=== PATIENT | male | born 1960 | race Caucasian/White ===

== ENCOUNTER 2020-07-18 08:21 | Observation (INO) | payer OTHER, MEDICARE, SELFPAY ==
[2020-07-18] VITALS (19 sets, daily range): BP systolic 115–176; BP diastolic 70–104; PULSE 69–122; RESP 16–20; TEMP 36.3–37.6; O2SAT 91–99; BMI 26.4
--- NOTE | 2020-07-18 08:27 | ED_ITS ---
HPI - Back Pain/Injury General: Chief Complaint: Back Pain/Injury Stated Complaint: back pain, rib pain Time Seen by Provider: 07/18/20 08:22 History of Present Illness: HPI Narrative: 60-year-old male presents emergency room with complaints of back pain. Pain radiates into the right upper quadrant. He has had this in the past although not nearly as intense it began last night is much more intense and has been in the past he is not had any diarrhea or vom iting with it no fever he has had loss of appetite. Denies hematemesis coffee- ground emesis. MD elicited complaint: back pain Onset (ago): hour(s) Timing: constant Severity: severe Quality: sharp and stabbing Location: right flank and right upper back Radiation: other (Right upper quadrant) Exacerbating factors: eating Relieving factors: none Associated symptoms: Reports abdominal pain, nausea and vomiting; Deny arthralgias, chills, change in bowel habits, difficulty walking, dysuria, fatigue, fecal incontinence, fever(s), hematuria, myalgias, numbness, syncope, tingling/numbness/burning, urinary frequency, urinary urgency or weakness Review of Systems Const: Denies: fever(s), chills or fatigue ENMT: Denies: throat pain, ear or mastoid pain, nasal discharge or nasal congestion Card: Denies: syncope Resp: Denies: dyspnea, productive cough or non-productive cough GI: Reports: abdominal pain, nausea and vomiting; Denies: fecal incontinence or change in bowel habits : Denies: dysuria, urinary urgency or hematuria Skin/Breast: Denies: rash or pruritus Neuro: Denies: difficulty walking [facility] ED PFSH: Social History Smoking and tobacco status: current every day smoker cigarettes Packs smoked per day: 1.5 Alcohol intake: never Substance/Drug Use: never Physical Exam Const: COMMON NORMALS: no acute distress GENERAL APPEARANCE: cooperative and comfortable ORIENTATION/CONSCIOUSNESS: Yes awake, Yes oriented to person, Yes oriented to place and Yes oriented to time HENMT: COMMON NORMALS: normocephalic, atraumatic and hearing grossly normal bilaterally HEAD & SCALP: normocephalic and atraumatic Neck/C-Spine: COMMON NORMALS: no JVD Resp: COMMON NORMALS: normal respiratory effort, No retractions, No use of accessory muscles and clear to auscultation bilaterally AUSCULTATION: clear to auscultation bilaterally Cardio: COMMON NORMALS: no JVD, regular rate, regular rhythm and No murmurs present (Cardio) RATE: regular rate RHYTHM: regular rhythm GI: COMMON NORMALS: No hepatosplenomegaly present AUSCULTATION: Yes normoactive bowel sounds PALPATION: Yes Tenderness to palpation present (GI) Details: RUQ (Positive Trevino sign) and Yes No hepatosplenomegaly present Extremity: COMMON NORMALS: normal to inspection, capillary refill normal, no clubbing, cyanosis or edema, no calf tenderness and no pedal edema Neuro: SENSORIUM/ORIENTATION: Yes oriented to person, Yes oriented to place and Yes oriented to time Skin: COMMON NORMALS: no rashes or lesions noted GENERAL SKIN EXAM: no rashes or lesions noted Course Vital Signs: Vital signs: Vital Signs Temperature 97.3 F L 07/18/20 08:31 Pulse Rate 74 07/18/20 08:34 Respiratory Rate 18 07/18/20 09:02 Blood Pressure 124/84 07/18/20 08:34 Pulse Oximetry 98 07/18/20 08:34 MDM - Back Pain/Injury MDM Narrative: Medical decision making narrative: Elevated white count CT shows thickening of the gallbladder wall with stones no significant dilation of common bile duct normal T bili and liver enzymes and lipase. Was started on Zosyn admit to Dr. Lorenzo. Have discussed with him. Lab Data: Attestation: I reviewed the patient's lab results. Labs: Lab Results 07/18/20 07/18/20 Range/Units 08:55 08:55 WBC 11.6 H (4.0-10.0) 10^3/ uL RBC 4.13 (4.1-5.3) 10^6/u L Hgb 14.0 (11.7-16.6) g/dL Hct 39.7 L (42.0-52.0) % MCV 96.1 H (80-94) fL MCH 33.9 (28.0-34.0) pg MCHC 35.3 (30.0-36.0) g/dL RDW 12.2 (12.1-15.1) % Plt Count 275 (130-400) 10^3/c mm MPV 8.9 (7.4-10.4) fL Neut % (Auto) 89.3 % Lymph % (Auto) 5.4 % [place] % (Auto) 4.2 % Eos % (Auto) 0.3 % Baso % (Auto) 0.5 % Neut # (Auto) 10.35 H (1.8-7.7) 10^3/u L Lymph # (Auto) 0.6 L (0.8-4.8) 10^3/u L [place] # (Auto) 0.5 (0.2-0.9) 10^3/u L Eos # (Auto) 0.0 (0.0-0.8) 10^3/u L Baso # (Auto) 0.1 (0.0-0.1) 10^3/u L Nucleated RBC % (a uto) 0 % Nucleated RBCs # 0.0 /100WBC Sodium 133 L (136-145) mmol/L Potassium 3.9 (3.5-5.1) mmol/L Chloride 99 (98-107) mmol/L Carbon Dioxide 26 (22-29) mmol/L Anion Gap 11.9 (5-19) BUN 13 (8-23) mg/dL Creatinine 0.8 (0.7-1.2) mg/dL GFR Calculation 98.6 (90-130) mL/min Glucose 162 H (65-115) mg/dL Calculated Osmolal ity 280 L (285-295) mOsm/k g Calcium 8.8 (8.5-10.5) mg/dL Total Bilirubin 0.5 (0.15-1.2) mg/dL AST 18 (0-40) U/L ALT 15 (0-41) U/L Alkaline Phosphata se 127 (40-130) IU/L Creatine Kinase 47 (39-308) U/L Total Protein 6.8 (6.6-8.7) g/dL Albumin 3.9 (3.5-5.2) g/dL Globulin 2.9 (1.3-4.6) g/dL Lipase 6 L (13-60) U/L Discharge Plan Discharge Patient Disposition: Placed in Observation Admit Provider: Baltazar Andrews Clinical Impression: Acute cholecystitis Coding Level of Care Code 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
--- NOTE | 2020-07-18 08:40 | ECG_ITS ---
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 Measurements Intervals [place] Rate: 85 P: 78 AR: 156 QRS: 63 QRSD: 109 T: 78 QT: 370 QTc: 440 Interpretive Statements SINUS RHYTHM No previous ECG available for comparison Electronically Signed On 07-19-2020 1:11:55 CDT by Tracie Bansal M.D. [id number]
--- NOTE | 2020-07-18 08:40 | US_ITS ---
WS: [id number] ULTRASOUND ABDOMEN LIMITED CLINICAL INFORMATION: RUQ abd pain COMPARISON: None. FINDINGS: Liver Size: Enlarged Craniocaudal length: 18.3 cm. Echogenicity: Normal. Surface nodularity: None. Mass (size and location): None. Bile ducts Intrahepatic ducts: Normal. Common bile duct diameter: 1.0 cm. Gallbladder Cholelithiasis with wall thickening. Irregular soft tissue thickening. Gallbladder mass not excluded. Gallstones: Present Gallbladder sludge: None. Gallbladder wall thickening: Present measuring 6.7 mm Pericholecystic fluid: None. Sonographic Trevino sign: Present Pancreas Not well seen due to bowel gas Right kidney: Normal. Hydronephrosis: None. Size: 10.7 cm x 4.7 cm x 3.0 cm. Abdominal aorta and IVC Visualized portions are normal. Ascites: None. US/US gall bladder [id number] IMPRESSION: 1. Irregular gallbladder with cholelithiasis and gallbladder wall thickening. Intraluminal polypoid thickening. Intraluminal mass not excluded. This can be f urther evaluated with MRCP. 2. Enlarged common bile duct measuring 10 mm. 3. Hepatomegaly. 4. No hydronephrosis in right kidney.
[2020-07-18 09:01] LABS: Basophils # 0.1 10^3/uL (0.0-0.1); Basophils % 0.5 %; Eosinophils % 0.3 %; Hematocrit 39.7 % (42.0-52.0); Lymphocytes # 0.6 10^3/uL (0.8-4.8); Lymphocytes % 5.4 %; Mean Corpuscular HGB Conc 35.3 g/dL (30.0-36.0); Mean Corpuscular Hemoglobin 33.9 pg (28.0-34.0); Mean Corpuscular Volume 96.1 fL (80-94); Mean Platelet Volume 8.9 fL (7.4-10.4); Monocytes # 0.5 10^3/uL (0.2-0.9); Monocytes % 4.2 %; Neutrophils # 10.35 10^3/uL (1.8-7.7); Neutrophils % 89.3 %; Nucleated Red Blood Cells % 0 %; Platelet Count 275 10^3/cmm (130-400); Red Blood Count 4.13 10^6/uL (4.1-5.3); Red Cell Distribution Width 12.2 % (12.1-15.1); White Blood Count 11.6 10^3/uL (4.0-10.0)
[2020-07-18] MEDS: ondansetron 2 mg/ML SDV 2 mL 4 MG IVP (09:02)
[2020-07-18] MEDS: morphine 4 mg/mL SDV 1 mL 6 MG IVP (09:02)
[2020-07-18 09:21] LABS: Alanine Aminotransferase 15 U/L (0-41); Albumin Level 3.9 g/dL (3.5-5.2); Alkaline Phosphatase 127 IU/L (40-130); Anion Gap 11.9 (5-19); Aspartate Amino Transferase 18 U/L (0-40); Blood Urea Nitrogen 13 mg/dL (8-23); Calcium 8.8 mg/dL (8.5-10.5); Carbon Dioxide 26 mmol/L (22-29); Chloride 99 mmol/L (98-107); Creatine Phosphokinase 47 U/L (39-308); Globulin 2.9 g/dL (1.3-4.6); Glomerular Filtration Rate 98.6 mL/min (90-130); Glucose 162 mg/dL (65-115); Lipase 6 U/L (13-60); Osmolality Calculated 280 mOsm/kg (285-295); Potassium 3.9 mmol/L (3.5-5.1); Sodium 133 mmol/L (136-145); Total Bilirubin 0.5 mg/dL (0.15-1.2); Total Protein 6.8 g/dL (6.6-8.7)
[2020-07-18] MEDS: piperacillin-tazobactam 3.375 GM in sodium chloride 0.9% (plus) 50 ML IV (09:24)
[2020-07-18 11:00] LABS: Bilirubin Urine Neg (Negative); Blood Urine 2+ (Negative); Glucose Urine UA Norm (Normal); Ketones Urine Negative (Negative); Nitrate Urine Negative (Negative); Protein Urine Neg (Negative); Specific Gravity, Urine 1.005 (1.005-1.030); Urine Appearance SL Hazy (CLEAR); Urine Color Yellow (Yellow); Urobilinogen Urine Norm (Negative); pH Urine 7 (5-7)
[2020-07-18 11:01] LABS: Add Urine Microscopic? YES; Leukocyte Esterase Urine Negative (Negative)
[2020-07-18 11:02] LABS: Add Urine Culture? Yes; Amorphous Sediment Urine 1+ /hpf; Bacteria Urine TRACE /hpf; Coarse Granular Casts Urine 0-4 /lpf; Mucus Urine TRACE /hpf; Squamous Epithelial Cell Urine 0-4 /hpf (0-5); WBC Urine 0-4 /hpf (0-5)
--- NOTE | 2020-07-18 11:43 | P.HP_ITS ---
Providers/Chief Complaint Admitting Physician: Baltazar Andrews MD Chief Complaint: SIDE/BACK PAIN History of Present Illness Edson Bridges is a 60 year old male who developed right-sided back pain last evening and this eventually radiated around to the front into the right upper quadrant. He says it even seems to extend up into his chest at times. He has felt nauseated but has not vomited. He feels gassy and bloated. He denies shor tness of breath. He came to the emergency room and an ultrasound revealed evidence of acute calculus cholecystitis. The patient reports that he has had multiple episodes like this over the past year, but it rarely will ever come all the way to the front of his abdomen. He says it usually comes on after he eats greasy or fried foods. It is usually associated with nausea and a bloated and belchy sensation. When it started he says it was usually just in his back and on his side and he thought he had had a rib injury that just had not been identified, even though he has no history of trauma to that area. Review of Systems General: Reports: 10 or more systems reviewed and unremarkable except in HPI and below Const: Denies: fever(s) Card: Reports: chest pain GI: Reports: abdominal pain, nausea, bloating and belching; Denies: vomiting or change in bowel habits Medications/Allergies Home Medications Medication Instructions Recorded Confirmed Last Taken Type albuterol sulfate 2 puff INHALATION Q4H PRN 07/18/20 07/18/20 Unknown History amitriptyline 50 mg PO BEDTIME 07/18/20 07/18/20 07/17/20 History bisacodyl 5 mg PO DAILY PRN 07/18/20 07/18/20 Unknown History cetirizine [Zyrtec] 10 mg PO DAILY 07/18/20 07/18/20 07/18/20 History docusate sodium [Colace] 100 mg PO DAILY 07/18/20 07/18/20 07/17/20 History gabapentin 300 mg PO TID 07/18/20 07/18/20 07/18/20 History methocarbamol 500 mg PO TID PRN 07/18/20 07/18/20 07/18/20 History morphine 30 mg PO Q12H 07/18/20 07/18/20 07/18/20 History multivitamin 1 tab PO DAILY 07/18/20 07/18/20 07/18/20 History naproxen 500 mg PO BID PRN 07/18/20 07/18/20 07/18/20 History valacyclovir 500 mg PO DAILY 07/18/20 07/18/20 07/17/20 History Allergies Allergy/AdvReac Type Severity Reaction Status Date / Time No Known Allergies Allergy Verified 07/18/20 08:35 PFSH Acute PFSH: Medical History (Updated 07/18/20 @ 12:19 by Baltazar Andrews MD) Chronic neck pain COPD (chronic obstructive pulmonary disease) History of skin cancer BCC abdominal wall Surgical History (Updated 07/18/20 @ 12:19 by Baltazar Andrews MD) Skin cancer of trunk BCC excised from right upper quadrant abdominal wall Social History (Updated 07/18/20 @ 12:20 by Baltazar Andrews MD) Smoking and tobacco status: current every day smoker cigarettes Packs smoked per day: 1.5 Years cigarettes smoked: 45 Alcohol intake: never Substance/Drug Use: never Vitals/I&O/Wt Last Vital Signs Temp 98.7 F 07/18/20 10:42 Pulse 71 07/18/20 10:42 Resp 18 07/18/20 10:42 BP 115/82 07/18/20 10:42 Pulse Ox 95 07/18/20 10:42 07/17/20 07/18/20 07/18/20 22:59 06:59 14:59 Intake Total 50 / 50 Balance 50 / 50 Weight last 48 hrs Weight 195 lb Physical Exam Narrative: EXAM NARRATIVE: The patient was examined in his hospital room. He does not appear to be in any acute distress. The pupils are equal. No carotid bruits are heard. The lungs are clear. The heart seems regular. The abdomen reveals bowel sounds it may be a little hypoactive. He has a well-healed scar in the right upper quadrant close to the umbilicus from where he reports he had a skin cancer excised. He has mild epigastric tenderness and perhaps moderate right upper quadrant tenderness but Trevino's sign is equivocal. No obvious masses are palpated. The extremities reveal no obvious edema. Neurologically the patient appears to be grossly intact. Data : 07/18/20 08:55 07/18/20 08:55 Other Labs: Laboratory Tests 07/18/20 08:55 Total Bilirubin 0.5 AST 18 ALT 15 Alkaline Phosphatase 127 Lipase 6 L US: Radiologist's impression: Gallbladder ultrasound 07/18/2020 impression: 1. Irregular gallbladder with cholelithiasis and gallbladder wall thickening. Intraluminal polypoid thickening. Intraluminal mass not excluded. This can be further evaluated with MRCP. 2. Enlarged common bile duct measuring 10 mm. 3. Hepatomegaly. 4. No hydronephrosis in right kidney. A&P Assessment and plan (1) Acute cholecystitis due to biliary calculus: The patient's ultrasound shows evidence of acute calculus cholecystitis. His bile duct appeared a little generous in size, but his LFTs are all within normal limits. The patient has been having pain intermittently for about a year but thought it was more of a musculoskeletal issue even though he says it would clearly come on after he would eat. His symptoms certainly otherwise seem consistent with biliary colic. We discussed biliary colic, cholelithiasis, etc. in detail. I discussed cholecystectomies including the associated surgical risks of bleeding (the patient does take naproxen twice daily -- we did discuss the other risks of NSAIDs including PUD), infection, internal organ injury, chances of an open procedure, etc. He is anxious to proceed with a cholecystectomy. He says if there is any chance he could even be home by the end of the day he would appreciate that. I am going to make arrangements for a laparoscopic or possibly open cholecystectomy today. The operating rooms report that they are extremely busy today and it may not be until later today when we can get down there for his p rocedure. His disposition will be based on what time the surgery gets completed today. Status: Acute Attestations Medical Necessity Statement*: Based on my medical assessment, presenting symptoms and consideration of the scope of surgical therapy, I expect this p atient will require treatment in the hospital for a period of time spanning less than 2 midnights, and is therefore being placed in observation status. Coding Level of Care Code Acute First Aid Attendant for [facility] Diagnoses Acute cholecystitis due to biliary calculus K80.00
[2020-07-18] MEDS: morphine 4 mg/mL SDV 1 mL IVP ×3 (14:04→20:09)
[2020-07-18] MEDS: D5-NS 0.45% + KCL 20 mEq 20 MEQ/1,000 ML BAG 125 MEQ IV ×2 (14:04→23:38)
--- NOTE | 2020-07-18 16:42 | PC.RESP ---
Smoking Cessation and Pulmonary Rehab information sent to patient.
--- NOTE | 2020-07-18 19:15 | ANES.PREANE2 ---
Pre-Anesthetic Assessment Pre-Anesthetic Assessment: Height/Weight: Height 1.83 m Weight 88.451 kg Temp Pulse Resp BP Pulse Ox 97.8 F 69 17 136/84 95 07/18/20 14:50 07/18/20 14:50 07/18/20 18:25 07/18/20 14:50 07/18/20 14:50 Preop Diagnosis: cholecytisis Proposed Procedure: Operation Date: 07/18/20 12:40 Proposed Procedures p Trochanteric Femoral Nail(Right) - Zaki Wheat MD Operation Date: 07/18/20 15:55 Proposed Procedures p Laparoscopic Cholecystectomy(Not Applicable) - Baltazar Andrews MD Familial anesthetic complications: None Was Beta [place] taken within 24 hours: N/A Was Clonidine taken within 24 hours: N/A Last intake: NPO > 8 hrs Social: Social History: Tobacco and No alcohol Exam: Pre-Anes Outpt Exam: alert, oriented x 3, clear to auscultation bilaterally and regular rate & rhythm Airway: Cervical ROM: WNL MP: 3 Dentition: False Pulmonary: Pulmonary: COPD Anesthetic Plan: ASA status: 3 Anesthesia: General Risk of > 500 ml blood loss (7ml/kg in children): No Meds/Allergies Current Medications: Current Medications Generic Name Dose Route Start Last Admin Trade Name Freq PRN Reason Stop Dose Admin Potassium Chloride /Dextrose/Sod Cl 20 meq in 1,000 m ls @ 125 mls/hr 07/18/20 11:05 07/18/20 14:04 D5-Ns 0.45% + Andrés l 20 Meq IV 125 mls/hr .Q8H SRINIVAS Administration Morphine Sulfate 4 mg 07/18/20 17:52 07/18/20 18:25 Morphine 4 Mg/Ml Sdv 1 Ml IVP 4 mg Q2H PRN Administration SEVERE PAIN PFSH Anesthesia PFSH: Medical History (Updated 07/18/20 @ 12:19 by Baltazar Andrews MD) Chronic neck pain COPD (chronic obstructive pulmonary disease) History of skin cancer BCC abdominal wall Surgical History (Updated 07/18/20 @ 12:19 by Baltazar Andrews MD) Skin cancer of trunk BCC excised from right upper quadrant abdominal wall Social History (Updated 07/18/20 @ 12:20 by Baltazar Andrews MD) Smoking and tobacco status: current every day smoker cigarettes Packs smoked per day: 1.5 Years cigarettes smoked: 45 Alcohol intake: never Substance/Drug Use: never Data Anesthesia CBC & Chem 7: 07/18/20 08:55 07/18/20 08:55 Other Labs: Laboratory Results - last 48 hr 07/18/20 07/18/20 07/18/20 08:55 08:55 09:57 WBC 11.6 H RBC 4.13 Hgb 14.0 Hct 39.7 L MCV 96.1 H MCH 33.9 MCHC 35.3 RDW 12.2 Plt Count 275 MPV 8.9 Neut % (Auto) 89.3 Lymph % (Auto) 5.4 [place] % (Auto) 4.2 Eos % (Auto) 0.3 Baso % (Auto) 0.5 Neut # (Auto) 10.35 H Lymph # (Auto) 0.6 L [place] # (Auto) 0.5 Eos # (Auto) 0.0 Baso # (Auto) 0.1 Nucleated RBC % (auto) 0 Nucleated RBCs # 0.0 Sodium 133 L Potassium 3.9 Chloride 99 Carbon Dioxide 26 Anion Gap 11.9 BUN 13 Creatinine 0.8 GFR Calculation 98.6 Glucose 162 H Calculated Osmolality 280 L Calcium 8.8 Total Bilirubin 0.5 AST 18 ALT 15 Alkaline Phosphatase 127 Creatine Kinase 47 Total Protein 6.8 Albumin 3.9 Globulin 2.9 Lipase 6 L Urine Color Yellow Urine Appearance Sl hazy Urine pH 7 Ur Specific [place] 1.005 Urine Protein Neg Urine Glucose (UA) Norm Urine Ketones Negative Urine Blood 2+ H Urine Nitrate Negative Urine Bilirubin Neg Urine Urobilinogen Norm Ur Leukocyte Esterase Negative Urine RBC 10-15 H Urine WBC 0-4 H Ur Squamous Epith Cells 0-4 H Amorphous Sediment 1+ Urine Bacteria Trace Coarse Granular Casts 0-4 H Urine Mucus Trace Cardiac Studies: No Data to Display
[2020-07-18] MEDS: sodium chloride 0.9% 1,000 ML 30 ML IV (20:05)
--- NOTE | 2020-07-18 21:54 | P.OP_ITS ---
Operative Report Date of procedure: July 18, 2020 Pre-op Diagnosis: Acute calculus cholecystitis. Post-op diagnosis: same Procedure Done: Laparoscopic cholecystectomy. Specimens removed/disposition: Gallbladder. Surgeon: Baltazar Andrews Anesthesia: General Estimated blood loss (mL): 25 Complications: None. Condition: stable Disposition: PACU Procedure: The patient was brought to the Operating Room and was placed in a supine position on the Operating Room table. General endotracheal anesthesia was induced. The abdomen was prepped and draped in a sterile fashion. A small vertical incision was carried out in the inferior aspect of the umbilicus. Blunt dissection was carried out down to the fascia, where a small umbilical hernia was found. The hernia defect was simply elongated slightly inferiorly. A stay suture of 0 Vicryl was placed on either side of the midline. The underlying peritoneum was opened bluntly and the Je port was placed directly into the peritoneal cavity through the enlarged hernia defect and was held in place with the inflatable balloon. The peritoneal cavity was insufflated with carbon dioxide. The laparoscope was used to inspect the abdominal cavity. No gross abnormalities were initially noted. A 5 millimeter port was placed in the epigastrium under direct vision. Two 5-millimeter ports were placed on the right side of the abdomen under direct vision. The gallbladder was grasped and was elevated. It was then obvious that the gallbladder was thickened and had an edematous wall. Blunt dissection and hydrodissection were carried out in the infundibular region of the gallbladder and the cystic duct and cystic artery were identified. The gallbladder was partially removed from the liver bed using cautery and the spatula to confirm the anatomy before the structures were clipped and divided. The gallbladder was then removed from the liver bed using cautery and the spatula. A half small hole was inadvertently made in the gall bladder during the dissection and a 1 cm stone eventually fell from the hole that was retrieved with the specimen. After the gallbladder had been removed from the liver bed, the laparoscope was moved to the epigastric port and the gallbladder was removed from the peritoneal cavity through the umbilical port site after being placed in a laparoscopic bag. The stay sutures of Vicryl were tied to each other at the umbilicus, closing the defect so that it was airtight. The perihepatic spaces were irrigated with saline and the liver bed was reinspected. No ongoing problems were seen. The remaining ports were removed from the abdominal wall and the pneumoperitoneum was evacuated. All skin incisions were closed using inverted interrupted sutures of 4-0 Vicryl. Benzoin and Steri-Strips were placed over the incisions and Band-Aids followed. The patient was taken to the Recovery Area in stable condition postoperatively.
[2020-07-18] MEDS: fentaNYL 50 mcg/mL INJ 2mL IVP ×2 (22:17→22:22)
--- NOTE | 2020-07-18 22:17 | PM.PACU ---
PACU note PACU note: Pt good rep effort Post-Anesthesia Exam: awake and vital signs stable Disposition: back to floor
--- NOTE | 2020-07-18 22:40 | ANE.PACU2 ---
Inpatient post-anesthesia follow up: Airway intact: Yes Vital signs: Temperature 99.1 F Pulse Rate [Right Radial] 93 Pulse Rate 90 Respiratory Rate 18 Blood Pressure [Ri ght Arm] 124/84 Blood Pressure 104/69 Pulse Oximetry 92 Oxygen Delivery Me thod Room Air Oxygen Flow Rate 8 Fraction of Inspir ed Oxygen Hydration adequate: Yes Nausea and vomiting: No Pain level: 3 Mental status: Baseline
[2020-07-18] MEDS: heparin 5,000 unit/mL INJ 1 mL 5000 UNIT SUBCUT (23:38)
[2020-07-18] MEDS: morphine ER (12 HR) 30 mg tablet PO (23:39)
[2020-07-19] VITALS (7 sets, daily range): BP systolic 97–104; BP diastolic 56–69; PULSE 90–96; RESP 16–18; TEMP 36.7–37.3; O2SAT 90–93
[2020-07-19 03:39] LABS: Basophils % 0.4 %; Eosinophils % 0.1 %; Hematocrit 36.9 % (42.0-52.0); Hemoglobin 12.6 g/dL (11.7-16.6); Lymphocytes # 0.7 10^3/uL (0.8-4.8); Lymphocytes % 7.2 %; Mean Corpuscular HGB Conc 34.1 g/dL (30.0-36.0); Mean Corpuscular Hemoglobin 33.3 pg (28.0-34.0); Mean Corpuscular Volume 97.6 fL (80-94); Mean Platelet Volume 9.7 fL (7.4-10.4); Monocytes # 0.8 10^3/uL (0.2-0.9); Monocytes % 7.8 %; Neutrophils # 8.66 10^3/uL (1.8-7.7); Neutrophils % 84.2 %; Nucleated Red Blood Cells % 0 %; Platelet Count 255 10^3/cmm (130-400); Red Blood Count 3.78 10^6/uL (4.1-5.3); Red Cell Distribution Width 12.3 % (12.1-15.1); White Blood Count 10.3 10^3/uL (4.0-10.0)
[2020-07-19 04:41] LABS: Alanine Aminotransferase 31 U/L (0-41); Albumin Level 3.5 g/dL (3.5-5.2); Alkaline Phosphatase 136 IU/L (40-130); Anion Gap 11.6 (5-19); Aspartate Amino Transferase 43 U/L (0-40); Blood Urea Nitrogen 11 mg/dL (8-23); Calcium 7.8 mg/dL (8.5-10.5); Carbon Dioxide 25 mmol/L (22-29); Chloride 105 mmol/L (98-107); Globulin 2.4 g/dL (1.3-4.6); Glomerular Filtration Rate 98.6 mL/min (90-130); Glucose 123 mg/dL (65-115); Osmolality Calculated 287 mOsm/kg (285-295); Potassium 3.6 mmol/L (3.5-5.1); Sodium 138 mmol/L (136-145); Total Bilirubin 0.7 mg/dL (0.15-1.2); Total Protein 5.9 g/dL (6.6-8.7)
--- NOTE | 2020-07-19 05:31 | PC.NURSE ---
Time temp HR RR 02 BP 2243 97.9 99 18 91 137/70 2330 97.9 97 18 92 135/70 0050 98.9 94 18 90 97/65 0130 98.7 98 18 92 100/67 0200 97.9 97 18 90 104/70 0400 99.1 90 18 92 104/69
[2020-07-19] MEDS: D5-NS 0.45% + KCL 20 mEq 20 MEQ/1,000 ML BAG 125 MEQ IV (07:28)
--- NOTE | 2020-07-19 07:32 | PM.DCS ---
Discharge Providers Date of Admission: 07/18/20 09:31 Date of Discharge: July 19, 2020 Attending Provider at Admission: Baltazar Andrews MD Attending Provider at Discharge: Baltazar Andrews MD Diagnoses at Discharge Discharge Diagnosis (1) Acute cholecystitis due to biliary calculus: Status: Acute Reason for Visit Reason for Visit: SIDE/BACK PAIN Hospital Course Hospital Course This is a 60-year-old white male who had been having symptoms of what I believe to be biliary colic for approximately a year prior to presentation. They had been worsening. The night before presentation he got such severe right upper quadrant pain that he came into the hospital. An ultrasound and laboratory studies revealed changes consistent with acute calculus cholecystitis. The patient was taken to the operating room later that day after being counseled regarding cholecystectomy's. He underwent a laparoscopic cholecystectomy which was without immediate complication. By the following morning he says he was not passing flatus but he already felt much better. He was very anxious to go home. Arrangements were made for him to follow-up in my office as an outpatient. He was instructed with respect to wound care, activity limitations, diet, etc. in the interim. Physical Exam Narrative: EXAM NARRATIVE: On physical exam, the patient's abdomen is soft. Bowel sounds are present but are somewhat hypoactive. All of the laparoscopic incisions look good. Discharge Data Data Completed and Pending: Completed Studies During Hospitalization Category Date Time Status US gall bladder 7 6705 Stat Ultrasound 07/18/20 08:40 Completed Pending at discharge Category Date Time Status Urine Culture Sta t Lab 07/18/20 09:57 Received Pathology: Surgic al [PTH] Routine Pth 07/18/20 21:49 Ordered Labs from last 24 hours 07/19/20 07/19/20 07/18/20 02:23 02:23 09:57 WBC 10.3 H RBC 3.78 L Hgb 12.6 Hct 36.9 L MCV 97.6 H MCH 33.3 MCHC 34.1 RDW 12.3 Plt Count 255 MPV 9.7 Neut % (Auto) 84.2 Lymph % (Auto) 7.2 [place] % (Auto) 7.8 Eos % (Auto) 0.1 Baso % (Auto) 0.4 Neut # (Auto) 8.66 H Lymph # (Auto) 0.7 L [place] # (Auto) 0.8 Eos # (Auto) 0.0 Baso # (Auto) 0.0 Nucleated RBC % (a uto) 0 Nucleated RBCs # 0.0 Sodium 138 Potassium 3.6 Chloride 105 Carbon Dioxide 25 Anion Gap 11.6 BUN 11 Creatinine 0.8 GFR Calculation 98.6 Glucose 123 H Calculated Osmolal ity 287 Calcium 7.8 L Total Bilirubin 0.7 AST 43 H ALT 31 Alkaline Phosphata se 136 H Creatine Kinase Total Protein 5.9 L Albumin 3.5 Globulin 2.4 Lipase Urine Color Yellow Urine Appearance Sl hazy Urine pH 7 Ur Specific Gravit y 1.005 Urine Protein Neg Urine Glucose (UA) Norm Urine Ketones Negative Urine Blood 2+ H Urine Nitrate Negative Urine Bilirubin Neg Urine Urobilinogen Norm Ur Leukocyte Gwendolyn ase Negative Urine RBC 10-15 H Urine WBC 0-4 H Ur Squamous Epith Cells 0-4 H Amorphous Sediment 1+ Urine Bacteria Trace Coarse Granular Ca sts 0-4 H Urine Mucus Trace 07/18/20 07/18/20 08:55 08:55 WBC 11.6 H RBC 4.13 Hgb 14.0 Hct 39.7 L MCV 96.1 H MCH 33.9 MCHC 35.3 RDW 12.2 Plt Count 275 MPV 8.9 Neut % (Auto) 89.3 Lymph % (Auto) 5.4 [place] % (Auto) 4.2 Eos % (Auto) 0.3 Baso % (Auto) 0.5 Neut # (Auto) 10.35 H Lymph # (Auto) 0.6 L [place] # (Auto) 0.5 Eos # (Auto) 0.0 Baso # (Auto) 0.1 Nucleated RBC % (a uto) 0 Nucleated RBCs # 0.0 Sodium 133 L Potassium 3.9 Chloride 99 Carbon Dioxide 26 Anion Gap 11.9 BUN 13 Creatinine 0.8 GFR Calculation 98.6 Glucose 162 H Calculated Osmolal ity 280 L Calcium 8.8 Total Bilirubin 0.5 AST 18 ALT 15 Alkaline Phosphata se 127 Creatine Kinase 47 Total Protein 6.8 Albumin 3.9 Globulin 2.9 Lipase 6 L Urine Color Urine Appearance Urine pH Ur Specific Gravit y Urine Protein Urine Glucose (UA) Urine Ketones Urine Blood Urine Nitrate Urine Bilirubin Urine Urobilinogen Ur Leukocyte Gwendolyn ase Urine RBC Urine WBC Ur Squamous Epith Cells Amorphous Sediment Urine Bacteria Coarse Granular Ca sts Urine Mucus Vitals: Last Vital Signs Temp 99.1 F 07/19/20 04:00 Pulse 90 07/19/20 04:00 Resp 18 07/19/20 04:00 BP 104/69 07/19/20 04:00 Pulse Ox 92 07/19/20 04:00 Discharge Plan Discharge Patient Disposition: Home Condition: Stable Prescriptions: Continued multivitamin Tablet 1 tab PO DAILY RF: 0 methocarbamol 500 mg Tablet 500 mg PO TID PRN (Reason: Pain) RF: 0 Zyrtec 10 mg Tablet 10 mg PO DAILY RF: 0 valacyclovir 500 mg Tablet 500 mg PO DAILY RF: 0 morphine 30 mg Tablet Extended Release 30 mg PO Q12H RF: 0 amitriptyline 50 mg Tablet 50 mg PO BEDTIME RF: 0 Colace 100 mg Capsule 100 mg PO DAILY RF: 0 gabapentin 300 mg Capsule 300 mg PO TID RF: 0 albuterol sulfate 90 mcg/actuation Hfa Aerosol Inhaler 2 puff INHALATION Q4H PRN (Reason: Shortness Of Breath) RF: 0 naproxen 500 mg Tablet 500 mg PO BID PRN (Reason: Pain) RF: 0 bisacodyl 5 mg Tablet 5 mg PO DAILY PRN (Reason: Constipation) RF: 0 Discharge Orders: Discharge Order (Routine); Ordered 07/19/20 Ordered By: Baltazar Andrews Referrals: Baltazar Andrews MD [Physician] - 2 weeks (Nursing: Please call Dr. Andrews's office ([phone]) and make an appointment for the patient to be seen in 10-14 days.) Discharge Diet: Advance as tolerated Discharge Activity: Limit activity as instructed Activity Restrictions/Additional Instructions: 1. Discharge to home today. 2. Appointment to see Dr. Andrews in 10-14 days. 3. Bandages / bandaids off tomorrow, leave Steri-Strip(s) on, may shower. No lifting over 20 pounds, no repetitive bending or twisting, no strenuous pushing / pulling or other heavy activity. Ambulate regularly. May go up and down steps if needed. Discharge Attestations Time Spent in Discharge Care*: less than 30 min Quality Metrics Clinical Quality Measures During this hospital stay, did patient experience: None Coding Level of Care Code Acute Chg FW DC note Diagnoses Acute cholecystitis due to biliary calculus K80.00
[2020-07-19] MEDS: gabapentin 300 mg Capsule PO (08:25)
[2020-07-19] MEDS: cetirizine 10 mg Tablet PO (08:26)
[2020-07-19] MEDS: valACYclovir 1,000 mg Tablet 500 MG PO (08:26)
[2020-07-19] MEDS: multivitamin therapeutic Tablet 1 TAB PO (08:26)
[2020-07-19] MEDS: docusate sodium 100 mg Capsule PO (08:26)
[2020-07-19] MEDS: heparin 5,000 unit/mL INJ 1 mL 5000 UNIT SUBCUT (10:01)
[2020-07-19] MEDS: morphine ER (12 HR) 30 mg tablet PO (10:01)
--- NOTE | 2020-07-19 10:35 | PC.NURSE ---
Discharge summary Patient and educated on discharge instructions of not lifting over 20 pounds and no excessive bending or twisting. Continue all medications and take tylenol for pain. Educated patient on following up with Surgeon and primary care physician and to not take naproxen or NSAIDs until his follow up then not excessively after that to avoid developing gastric ulcers. Patient stated understanding and discharged with via private vehicle.
== END 2020-07-19 10:40 | disposition home or self-care (01) ==
LOC: ER 09:19 → MEDSURG 10:16
PROVIDERS: Admitting Provider Surgery; Emergency Provider Family Medicine; Visit Provider Surgery
PROC: 0FT44ZZ Resection of Gallbladder, Percutaneous Endoscopic Approach (ICD-10-PCS; CPT 47562; principal; 2020-07-18 15:55)
DX: K80.10 Calculus of gallbladder with chronic cholecystitis without obstruction (principal); J44.9 Chronic obstructive pulmonary disease, unspecified; F17.210 Nicotine dependence, cigarettes, uncomplicated
CPT/HCPCS: 47562; 12345; 36415; 76705; 80053; 81001; 82550; 83690; 85025; 87086; 88304; 93005; 96365; 96366; 96367; 96372; 96375; 99285; G0378; J0690; J1644; J2270; J2405; J2543; J2704; J2710; J3010; J3490; J7030

== ENCOUNTER 2024-11-08 21:06 | Emergency (ER) | payer OTHER, SELFPAY ==
--- OUTSIDE RECORDS SUMMARY | 2024-11-08 21:14 | XMS_ITS | Clinical Summary ---
Author Organization [facility] Address [address] [place] [address] Phone Care Team Providers Care Perfect Binder Feeder Offbearer Name Role Phone Patel Starr DO Primary Care Provider + Allergies No known active allergies Medications amitriptyline (ELAVIL) 50 mg tablet Take 50 mg by mouth daily at bedtime. Active gabapentin (NEURONTIN) 800 mg tablet Take 3,300 mg by mouth 2 times daily. Active fluticasone (FLONASE) 50 mcg/spray [place], Suspension Administer 2 Sprays in each nostril daily. Active valACYclovir (VALTREX) 500 mg tablet Take 500 mg by mouth 3 times daily. Active naproxen (NAPROSYN) 500 mg tablet Take 500 mg by mouth 2 times daily with meals. Active morphine (MS IR) 30 mg tablet Take 30 mg by mouth every 12 hours. Active methocarbamol (ROBAXIN) 500 mg tablet Take 500 mg by mouth 3 times daily. Active multivitamin (DAILY-CONNIE) tablet Take 1 Tab by mouth daily. Active acetaminophen (TYLENOL) 325 mg tablet Take 650 mg by mouth every 6 hours as needed. Active bisacodyl delayed release (DULCOLAX) 5 mg Tablet, Delayed Release (E.C.) Take 15 mg by mouth 1 time daily as needed for Constipation. Active docusate sodium (COLACE) 50 mg capsule Take 100 mg by mouth daily at bedtime. Active Family History Medical History Relation Name Comments Colon Cancer Neg Hx Social History Tobacco Use Types Packs/Day Years Used Date Smoking Tobacco: Every Day Cigarettes 2 40 Alcohol Use Standard Drinks/Week Comments No 0 (1 standard drink = 0.6 oz pur e alcohol) Sex and Gender Information Value Date Recorded Sex Assigned at Not on file Legal Sex Male 7:00 AM CDT Gender Identity Not on file Sexual Orientation Not on file Occupation Industry Job Start Date Job End Date Not on file Not on file Not on file Not on file Last Filed Vital Signs Vital Sign Reading Time Taken Comments Blood Pressure 105/72 01/18/2014 4:42 PM CDT Pulse 87 01/18/2014 4:42 PM CDT Temperature 36.7 C (98.1 F) 01/18/2014 3:28 PM CDT Respiratory Rate 20 01/18/2014 4:42 PM CDT Oxygen Saturation 98% 01/18/2014 4:42 PM CDT Inhaled Oxygen Concentration - - Weight 86.2 kg (190 lb) 01/07/2014 12:37 PM CDT Height 185.4 cm (6' 1 ) 01/07/2014 12:37 PM CDT Body Mass Index 25.07 01/07/2014 12:37 PM CDT Plan of Treatment Health Maintenance Due Date Last Done Comments DTAP/TDAP/TD VACCINES (1 - Tdap) 1979 FIT-DNA Q 3 years 2005 FIT/FOBT Q 1 year 2005 Flex Sig/CT Colonography Q 5 years 2005 ZOSTER VACCINE (1 of 2) 2010 COLORECTAL SCREENING 01/19/2024 01/18/2014, 01/19/20 14 Colorectal Cancer Screening 01/19/2024 INFLUENZA VACCINE (#1) 2024 RSV VACCINE (60+ or ) (1 - 1-dose 75+ series) 2035 Procedures Procedure Name Priority Date/Time Associated Diagnosis Comments ENDOSCOPY, COLON, SCREENING Routine 01/18/2014 3:13 PM CDT Special screening for malignant neoplasms, colon from Last 3 Months or Most Recently Relevant to Health Maintenance Insurance [employer] [place] [place] [id number] Advance Directives For more information, please contact: [phone] * Full Code (Latest Code Status on File) Date Activated Date Inactivated Comments 01/18/2014 3:12 PM 01/18/2014 7:02 PM Care Teams Perfect Binder Feeder Offbearer Relationship Specialty Start Date End Date Patel Starr DO [address] [place] [address] PCP - General Family Practice 12/17/13
--- OUTSIDE RECORDS SUMMARY | 2024-11-08 21:14 | XMS_ITS | Clinical Summary ---
Author Organization [employer] [facility] Address [address] Attn: [place] [address] Care Team Providers Care Batch Mixing Truck Driver Name Role Phone Patel Starr Primary Care Provider + Allergies No known active allergies Family History Medical History Relation Name Comments Colon Cancer Neg Hx Social History Tobacco Use Types Packs/Day Years Used Date Smoking Tobacco: Every Day Cigarettes Alcohol Use Standard Drinks/Week Comments No 0 (1 standard drink = 0.6 oz pur e alcohol) Sex and Gender Information Value Date Recorded Sex Assigned at Not on file Legal Sex Male 7:29 AM PLATE EMBOSSER Gender Identity Not on file Sexual Orientation Not on file Plan of Treatment Health Maintenance Due Date [...] ) (1 - 1-dose 75+ series) 2035 Insurance MEDICARE PART A AND B Care Teams Batch Mixing Truck Driver Relationship Specialty Start Date End Date Patel Starr DO [address] [place] [id number] PCP - General Family Practice 12/17/13
[2024-11-08 21:17] VITALS: BP 169/82; PULSE 57; RESP 18; TEMP 36.8; O2SAT 99; BMI 26.4
[2024-11-08 21:57] VITALS: BP 166/94; PULSE 57; RESP 19; O2SAT 99
--- NOTE | 2024-11-08 22:01 | PC.NURSE ---
pt given urine specimen cup and asked for urine sample. Pt voiced understanding and states he will try in a little bit. IVF running.
--- NOTE | 2024-11-08 22:01 | W.ED.ABDPA2 ---
HPI - Abdominal Pain General: Chief Complaint: Abdominal Pain Stated Complaint: ABD Pain Time Seen by Provider: 11/08/24 21:42 History of Present Illness: 64-year-old male patient with a history of cervical spondylosis, cholecystectomy. He presents with generalized belly pain and cramping, vomiting, muscle aches for the past couple of days. He states that he worked outside on 4 days ago, and may have gotten too hot. He has been drinking water and Gatorade. He felt improved to some degree on Saturday, but stomach cramping started last night, and have continued through the day. He denies diarrhea. Related Data Home Medications ?Medication ?Instructions ?Recorded ?Confirmed albuterol sulfate 90 mcg/actuation 2 puff inhalation Q4H PRN 07/18/20 07/18/20 aerosol inhaler Shortness Of Breath amitriptyline 50 mg tablet 50 mg PO BEDTIME 07/18/20 07/18/20 bisacodyl 5 mg tablet 5 mg PO DAILY PRN Constipation 07/18/20 07/18/20 cetirizine 10 mg tablet (Zyrtec) 10 mg PO DAILY 07/18/20 07/18/20 docusate sodium 100 mg capsule 100 mg PO DAILY 07/18/20 07/18/20 (Colace) gabapentin 300 mg capsule 300 mg PO TID 07/18/20 07/18/20 methocarbamol 500 mg tablet 500 mg PO TID PRN Pain 07/18/20 07/18/20 morphine 30 mg tablet,extended 30 mg PO Q12H 07/18/20 07/18/20 release multivitamin 1 tab PO DAILY 07/18/20 07/18/20 naproxen 500 mg tablet 500 mg PO BID PRN Pain 07/18/20 07/18/20 valacyclovir 500 mg tablet 500 mg PO DAILY 07/18/20 07/18/20 Previous Rx's ?Medication ?Instructions ?Recorded magnesium citrate (Citrate of 296 ml PO DAILY #296 mL 11/09/24 Magnesia oral) ondansetron 4 mg disintegrating 4 mg PO Q6H PRN nausea and 11/09/24 tablet vomiting #14 tabs Allergies Allergy/AdvReac Type Severity Reaction Status Date / Time No Known Allergies Allergy Verified 07/18/20 08:35 [facility] ED [facility]: Medical History History of skin cancer BCC abdominal wall Chronic neck pain COPD (chronic obstructive pulmonary disease) Surgical History Skin cancer of trunk BCC excised from right upper quadrant abdominal wall Social History Smoking and tobacco/nicotine status: current every day tobacco/nicotine user cigarettes Packs smoked per day: 1.5 Years cigarettes smoked: 45 Alcohol intake: never Substance/Drug Use: never Physical Exam Const: COMMON NORMALS: no acute distress GENERAL APPEARANCE: cooperative; not ill appearing and not frail appearing HENMT: COMMON NORMALS: normocephalic, atraumatic and Normal external nose present HEAD & SCALP: normocephalic and atraumatic FACE & SINUS: normal facial exam and face symmetric NOSE: Normal external nose present Eye: COMMON NORMALS: Equal, round and reactive pupils present and EOMs intact bilaterally PUPIL: Yes Equal, round and reactive pupils present Neck/C-Spine: GENERAL: Yes trachea midline Chest: CHEST: Yes Symmetrical chest wall rise Resp: COMMON NORMALS: normal respiratory effort, No retractions, No use of accessory muscles and clear to auscultation bilaterally AUSCULTATION: clear to auscultation bilaterally Cardio: COMMON NORMALS: regular rate and regular rhythm RATE: regular rate RHYTHM: regular rhythm GI: COMMON NORMALS: Normal to inspection, nondistended, normoactive bowel sounds present Extremity: COMMON NORMALS: no pedal edema Neuro: GRAEME COMA SCALE: document GCS findings [place] coma scale eye opening: Spontaneous [place] coma scale verbal response: Orientated [place] coma scale motor response: Obey commands [place] coma scale total score: 15 SENSORY EXAM: Yes extremities (intact) Psych: COMMON NORMALS: speech normal SPEECH: Yes normal speech Skin: COMMON NORMALS: no rashes or lesions noted GENERAL SKIN EXAM: no rashes or lesions noted Course Vital Signs: Vital signs: Vital Signs Temperature 98.2 F 11/08/24 21:17 Pulse Rate 64 11/09/24 00:35 Respiratory Rate 18 11/08/24 23:04 Blood Pressure 143/78 11/09/24 00:35 Pulse Oximetry 98 11/09/24 00:35 Oxygen Delivery Me thod Room Air 11/08/24 23:04 MDM - Abdominal Pain Medical Decision Making Patient's blood pressure is improved. Vitals are normal. He feels much improved after a liter of fluid, Toradol Zofran and morphine. He is asymptomatic currently. CBC is normal. BMP is not remarkable. He has some hematuria, but otherwise urinalysis is negative. Lipase is 11. Liver enzymes are normal. CRP is only 7. CT shows no definite acute findings. He does have a large amount of retained stool. He will be prescribed a laxative for this. With improvement in his symptoms, normal lipase, normal liver enzymes, he will be discharged home. Lab Data 11/08/24 21:54 11/08/24 21:54 Labs/Radiology: Radiology Impressions Abdomen/Pelvis CT 11/08/24 22:52 IMPRESSION: 1. Questionable edema adjacent to the tail of the pancreas. Recommend laboratory correlation to exclude pancreatitis. 2. Mild intra and extrahepatic ductal dilatation, likely related to prior cholecystectomy. Correlate with serum bilirubin. 3. Other nonemergent findings above. COMMENTS: Consistent with the [place] [employer]'s Incidental Findings Committee white paper (J Am Helena Radiol 2018): Any incidental renal lesion less than 1 cm or classified as too small to characterize, or any incidental cystic renal lesion characterized as simple-appearing, is likely benign. No follow-up imaging is recommended for these lesions per consensus recommendations based on imaging criteria. Laboratory Results WBC 8.27 10^3/uL (3.29-11.43) 11/08/24 21:54 RBC 4.75 10^6/uL (3.85-5.65) 11/08/24 21:54 Hgb 14.80 g/dL (11.27-16.99) 11/08/24 21:54 Hct 43.0 % (37-53) 11/08/24 21:54 MCV 90.5 fl (82-101) 11/08/24 21:54 MCH 31.2 pg (27-33) 11/08/24 21:54 MCHC 34.4 g/dL (30-55) 11/08/24 21:54 RDW 12.8 % (12.1-15.1) 11/08/24 21:54 Plt Count 277 10^3/cmm (157-399) 11/08/24 21:54 MPV 9.1 fL (7.4-10.4) 11/08/24 21:54 Neut % (Auto) 75.1 % 11/08/24 21:54 Lymph % (Auto) 16.4 % 11/08/24 21:54 [place] % (Auto) 6.3 % 11/08/24 21:54 Eos % (Auto) 1.2 % 11/08/24 21:54 Baso % (Auto) 0.6 % 11/08/24 21:54 Neut # (Auto) 6.21 10^3/uL (1.8-7.7) 11/08/24 21:54 Lymph # (Auto) 1.4 10^3/uL (0.8-4.8) 11/08/24 21:54 [place] # (Auto) 0.5 10^3/uL (0.2-0.9) 11/08/24 21:54 Eos # (Auto) 0.1 10^3/uL (0.0-0.8) 11/08/24 21:54 Baso # (Auto) 0.1 10^3/uL (0.0-0.1) 11/08/24 21:54 Nucleated RBC % (auto) 0 % 11/08/24 21:54 Nucleated RBCs # 0.0 /100WBC 11/08/24 21:54 Sodium 137 mmol/L (136-145) 11/08/24 21:54 Potassium 3.9 mmol/L (3.5-5.1) 11/08/24 21:54 Chloride 100 mmol/L (98-107) 11/08/24 21:54 Carbon Dioxide 26 mmol/L (22-29) 11/08/24 21:54 Anion Gap 14.9 (5-19) 11/08/24 21:54 BUN 9 mg/dL (8-23) 11/08/24 21:54 Creatinine 0.7 mg/dL (0.7-1.2) 11/08/24 21:54 GFR Calculation 113.5 mL/min (90-130) 11/08/24 21:54 Glucose 140 mg/dL (65-115) H 11/08/24 21:54 Calculated Osmolality 285 mOsm/kg (285-295) 11/08/24 21:54 Lactic Acid 0.9 mmol/L (0.5-2.2) 11/08/24 21:54 Calcium 8.9 mg/dL (8.5-10.5) 11/08/24 21:54 Total Bilirubin 0.5 mg/dL (0.15-1.2) 11/08/24 21:54 AST 23 U/L (0-40) 11/08/24 21:54 ALT 14 U/L (0-41) 11/08/24 21:54 Alkaline Phosphatase 169 U/L (40-130) H 11/08/24 21:54 Creatine Kinase 67 U/L (39-308) 11/08/24 21:54 C-Reactive Protein 7.1 mg/L (0.0-4.9) H 11/08/24 21:54 Total Protein 7.2 g/dL (6.6-8.7) 11/08/24 21:54 Albumin 3.9 g/dL (3.5-5.2) 11/08/24 21:54 Globulin 3.3 g/dL (1.3-4.6) 11/08/24 21:54 Lipase 11 U/L (13-60) L 11/08/24 21:54 Urine Color Yellow (Yellow) 11/08/24 22:47 Urine Appearance Clear (CLEAR) 11/08/24 22:47 Urine pH 8.0 (5-7) A 11/08/24 22:47 Ur Specific [place] 1.012 (1.005-1.030) 11/08/24 22:47 Urine Protein Negative (Negative) 11/08/24 22:47 Urine Glucose (UA) Negative (Normal) 11/08/24 22:47 Urine Ketones Negative (Negative) 11/08/24 22:47 Urine Blood Non-haemolysed trace (Negative) 11/08/24 22:47 Urine Nitrate Negative (Negative) 11/08/24 22:47 Urine Bilirubin Negative (Negative) 11/08/24 22:47 Urine Urobilinogen 1.0 mg/dL (Negative) 11/08/24 22:47 Ur Leukocyte Esterase Negative (Negative) 11/08/24 22:47 Urine RBC 21-50 /hpf (0-2) H 11/08/24 22:47 Urine WBC 0-5 /hpf (0-5) 11/08/24 22:47 Ur Squamous Epith Cells 0-5 /hpf (0-5) 11/08/24 22:47 Amorphous Sediment Not Reportable 11/08/24 22:47 Urine Bacteria None seen /hpf (NONE) 11/08/24 22:47 Hyaline Casts 0.81 /lpf 11/08/24 22:47 All radiology interpretation(s) finalized by discharge Discharge Plan Discharge Patient Disposition: Home Clinical Impression: Constipation, Dehydration Condition: Stable Prescriptions: New ondansetron 4 mg tablet,disintegrating 4 mg PO Q6H PRN (Reason: nausea and vomiting) Qty: 14 0RF magnesium citrate [Citrate of Magnesia] Solution 296 ml PO DAILY Qty: 296 0RF No Action multivitamin Tablet 1 tab PO DAILY methocarbamol 500 mg Tablet 500 mg PO TID PRN (Reason: Pain) Zyrtec 10 mg Tablet 10 mg PO DAILY valacyclovir 500 mg Tablet 500 mg PO DAILY morphine 30 mg Tablet Extended Release 30 mg PO Q12H amitriptyline 50 mg Tablet 50 mg PO BEDTIME Colace 100 mg Capsule 100 mg PO DAILY gabapentin 300 mg Capsule 300 mg PO TID albuterol sulfate 90 mcg/actuation Hfa Aerosol Inhaler 2 puff INHALATION Q4H PRN (Reason: Shortness Of Breath) naproxen 500 mg Tablet 500 mg PO BID PRN (Reason: Pain) bisacodyl 5 mg Tablet 5 mg PO DAILY PRN (Reason: Constipation) Discharge Orders: Discharge ED (Routine); Ordered 11/09/24 Ordered By: Bill Miller Referrals: Patel Starr [Primary Care Provider] - 4-7 days Patient Instructions: Constipation (ED), Dehydration (ED), Opioid Safety, Pain Management, Patient Portal & Tato Instructions Activity Restrictions/Additional Instructions: Stay in a cool environment for the next 24 to 48 hours. Hydrate. Medication as directed. Use nausea medication scheduled every 4 hours while awake for the first 24 hours, then as needed following that. Return for worsening pain despite treatment, vomiting liquids or medications, fever, any other concerning symptoms. See your doctor next week. Print Language: Czech Coding Level of Care Code ED Stoker Erector for Ernie Odell
[2024-11-08 22:06] LABS: Hematocrit 43.0 % (37-53); Hemoglobin 14.80 g/dL (11.27-16.99); Mean Corpuscular HGB Conc 34.4 g/dL (30-55); Mean Corpuscular Hemoglobin 31.2 pg (27-33); Mean Corpuscular Volume 90.5 fl (82-101); Nucleated Red Blood Cells % 0 %; Platelet Count 277 10^3/cmm (157-399); Red Blood Count 4.75 10^6/uL (3.85-5.65); White Blood Count 8.27 10^3/uL (3.29-11.43)
[2024-11-08 22:19] LABS: Lactic Sepsis W/Reflex 0.9 mmol/L (0.5-2.2)
[2024-11-08 22:30] LABS: Alanine Aminotransferase 14 U/L (0-41); Albumin Level 3.9 g/dL (3.5-5.2); Alkaline Phosphatase 169 U/L (40-130); Anion Gap 14.9 (5-19); Aspartate Amino Transferase 23 U/L (0-40); Blood Urea Nitrogen 9 mg/dL (8-23); Calcium 8.9 mg/dL (8.5-10.5); Carbon Dioxide 26 mmol/L (22-29); Chloride 100 mmol/L (98-107); Creatinine Clr Calc Pharmacy 123.5609; Globulin 3.3 g/dL (1.3-4.6); Glucose 140 mg/dL (65-115); Lipase 11 U/L (13-60); Osmolality Calculated 285 mOsm/kg (285-295); Potassium 3.9 mmol/L (3.5-5.1); Sodium 137 mmol/L (136-145); Total Protein 7.2 g/dL (6.6-8.7)
--- NOTE | 2024-11-08 22:52 | CTR_ITS ---
PROCEDURE INFORMATION: Exam: CT Abdomen And Pelvis With Contrast Exam date and time: 11/08/2024 11:06 PM Age: 64 years old Clinical indication: Nausea and vomiting; Abdominal pain; Generalized; Prior surgery; Surgery date: 6+ months; Surgery type: Gb; Diffuse abd pain with n/v; Additional info: Abd pain, vomiting TECHNIQUE: Imaging protocol: Computed tomography of the abdomen and pelvis with contrast. Radiation optimization: All CT scans at this facility use at least one of these dose optimization techniques: automated exposure control; mA and/or kV adjustment per patient size (includes targeted exams where dose is matched to clinical indication); or iterative reconstruction. Contrast material: OMNI 350; Contrast volume: 100 ml; Contrast route: INTRAVENOUS (IV); COMPARISON: US gall bladder [id number] 07/18/2020 8:56 AM RADIATION DOSE METRICS: Total DLP (mGy-cm): 687.52 FINDINGS: Lungs: The lung bases are clear. Heart: Heart size is within normal limits. There is no pericardial effusion or pericardial thickening. Liver: The liver is normal. No hepatic masses are identified. Gallbladder and biliary ducts: The gallbladder is surgically absent. Mild intra and extrahepatic ductal dilatation, likely related to prior cholecystectomy. Pancreas: The pancreas is atrophic. There is questionable edema adjacent to the tail of the pancreas. Spleen: The spleen is normal. Adrenal glands: The adrenal glands are normal. Kidneys and ureters: There is normal enhancement of the kidneys. No renal calcifications are identified. There is no hydronephrosis. There are bilateral subcentimeter renal low-density lesions which are too small for accurate characterization, likely representing simple cysts. 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 The ureters appear to join in the distal pelvis. Mild symmetric perinephric changes, likely chronic. Stomach and bowel: [id number] retained stool in the right colon. There is no large or small bowel obstruction. There is no evidence of bowel wall thickening. Appendix: A normal appendix is identified. Intraperitoneal space: No inflammatory changes are identified. There is no free fluid or fluid collection seen. There is no pneumoperitoneum. Vasculature: Atherosclerotic calcifications of the aorta are present. No aneurysm is identified. Mild stenosis of the proximal superior mesenteric artery secondary to soft plaque. Lymph nodes: No enlarged lymph nodes are identified. Urinary bladder: Moderately distended urinary bladder. Reproductive: There is mild prostatomegaly. Bones/joints: No acute osseous abnormalities are seen. Soft tissues: Small periumbilical hernia containing only fat. Mild diastasis of the anterior abdominal wall. Small bilateral inguinal hernias containing only fat are present. CT/CT abdomen pelvis w con* [id number] IMPRESSION: 1. Questionable edema adjacent to the tail of the pancreas. Recommend laboratory correlation to exclude pancreatitis. 2. Mild intra and extrahepatic ductal dilatation, likely related to prior cholecystectomy. Correlate with serum bilirubin. 3. Other nonemergent findings above. COMMENTS: Consistent with the [employer]'s Incidental Findings Committee white paper (J Am Helena Radiol 2018): Any incidental renal lesion less than 1 cm or classified as too small to characterize, or any incidental cystic renal lesion characterized as simple-appearing, is likely benign. No follow-up imaging is recommended for these lesions per consensus recommendations based on imaging criteria.
[2024-11-08 22:53] LABS: Glucose Urine UA Negative (Normal); Nitrate Urine Negative (Negative); Specific Gravity, Urine 1.012 (1.005-1.030)
[2024-11-08 22:58] LABS: Add Urine Microscopic? YES
[2024-11-08] MEDS: ondansetron 2 mg/ML SDV 2 mL 4 MG IVP (23:03)
[2024-11-08 23:04] VITALS: BP 148/87; PULSE 76; RESP 18; O2SAT 97
[2024-11-08] MEDS: morphine 4 mg/mL SDV 1 mL IVP (23:04)
[2024-11-08] MEDS: iohexol 350 mg/mL 500 mL Btl (per mL) IV (23:09)
[2024-11-09 00:35] VITALS: BP 143/78; PULSE 64; O2SAT 98
== END 2024-11-09 00:30 | disposition home or self-care (01) ==
PROVIDERS: Emergency Provider Emergency Medicine; PCP Family Medicine
DX: K59.00 Constipation, unspecified (principal); E86.0 Dehydration; F17.210 Nicotine dependence, cigarettes, uncomplicated; J44.9 Chronic obstructive pulmonary disease, unspecified; Z85.828 Personal history of other malignant neoplasm of skin
CPT/HCPCS: 36415; 74177; 80053; 81001; 82550; 83605; 83690; 85025; 86140; 96361; 96374; 96375; 99285; J1885; J2270; J2405; J7030